=== PATIENT | female | born 1995 | race Hispanic/Latino ===

== ENCOUNTER 2016-07-04 07:54 | Emergency (ER) | payer OTHER ==
--- NOTE | 2016-07-04 12:28 | Emergency Department Report ---
HPI - General Chief Complaint: Upper Respiratory Infection Time Seen by Provider: 07/04/16 12:25 - HPI HPI: This is a 21-year-old female well-nourished well-developed in no acute distress. She presented from [facility] for complaints of nonproductive cough times one and a half weeks. She says she has nasal congestion and runny nose. She says she's been wheezing on and off. She says she took Mucinex is initially but it's not helping. Denies any fever or chills. Denies any nausea or vomiting. She reports chest congestion and pain with cough 7 out of 10. Denies any chest pain at present denies any difficulty breathing. Patient has history of mental health disorder. Denies any history of high blood pressure, heart disease or diabetes. ED Past Medical Hx - Past Medical History Previous Medical History?: Yes - Family History Family history: no significant - Social History Smoking Status: Never Smoker Substance Use Type: None - Medications Home Medications: Home Medications Medication Instructions Recorded Confirmed Last Taken Type Azithromycin [Zithromax Z-MARIAH] 250 mg PO DAILY #6 tab 07/04/16 Unknown Rx Fluticasone [Flonase] 1 spray NS QDAY #1 bottle 07/04/16 Unknown Rx ED Review of Systems ROS: Stated complaint: COUGH/WHEEZING/CHEST PAIN Other details as noted in HPI Comment: All other systems reviewed and negative Constitutional: denies: chills, fever Eyes: denies: eye discharge ENT: congestion. denies: ear pain, throat pain Respiratory: cough. denies: shortness of breath, SOB with exertion, SOB at rest , wheezing Cardiovascular: denies: chest pain, palpitations, edema, syncope Gastrointestinal: denies: abdominal pain, nausea, vomiting, diarrhea Musculoskeletal: denies: back pain Skin: denies: rash Neurological: denies: headache, abnormal gait, vertigo Physical Exam - Physical Exam Vital Signs: Vital Signs 07/04/16 09:27 Temperature 98.6 F Pulse Rate 85 Respiratory 18 Rate Blood Pressure 118/80 O2 Sat by Pulse 98 Oximetry General: This is a 21-year-old female well-nourished well-developed in no acute distress. Physical Exam: Head: Normocephalic atraumatic Mouth: Moist, no pharyngeal exudate or erythema. Uvula is midline and oral airway is patent. No gingival enlargement or dental tenderness. No facial swelling. No peritonsillar abscesses. Neck: Supple, no C-spine tenderness, no tracheal deviation. Nontender to palpate. no adenopathy Ears: Bilateral TMs congested without erythema .bilateral EAC without any redness swelling or drainage Eyes: Bilateral pupils equal and reactive to light, bilateral EOM intact. Bilateral sclera and conjunctiva without injection. Normal accommodation Nose: Mucosa moist, positive congestion with erythema. Positive clear drainage. maxillary and frontal sinus non-tender to palpate. Lungs: Clear to auscultate bilaterally no rhonchi wheezes or rales. Normal work of breathing extremity; No CCE. +2 pulses. No neurovascular compromise Cardiovascular: S1-S2, regular rate rhythm. No murmurs. Skin: clean Dry and intact no rash no lesions Psych: Normal mood and behavior ED Course Vital Signs 07/04/16 09:27 Temperature 98.6 F Pulse Rate 85 Respiratory 18 Rate Blood Pressure 118/80 O2 Sat by Pulse 98 Oximetry - Reevaluation(s) Reevaluation #1: 07/04/16 13:15 Patient received a total similar gram by mouth in emergency room. ED Medical Decision Making - Medical Decision Making ED course: This is a 21-year-old female well-nourished well-developed in no acute distress. I discussed with her based on my physical findings she has acute sinusitis. Discussed with her her diagnosis and treatment plan and she is in agreement. She received Deltasone 60 mg by mouth in emergency room. She says she's taking Claritin I discussed with her that she should continue. I also discussed with her that she should follow up with her primary care physician which she does have one. Patient discharged home with prescription for Flonase and amoxicillin. Critical care attestation.: If time is entered above; I have spent that time in minutes in the direct care of this critically ill patient, excluding procedure time. ED Disposition Clinical Impression: Cough Acute sinusitis Qualifiers: Sinusitis location: unspecified location Recurrence: not specified as recurrent Qualified Code(s): J01.90 - Acute sinusitis, unspecified Disposition: DISCHARGED TO HOME OR SELFCARE Is pt being admited?: No Does the pt Need Aspirin: No Condition: Stable Instructions: Sinusitis (ED), Acute Cough (ED) Additional Instructions: He can continue to take Claritin. Take Antibiotic as prescribed. You can flush and nostrils out with saline nasal wash. Prescriptions: Azithromycin [Zithromax Z-MARIAH] 250 mg PO DAILY #6 tab Fluticasone [Flonase] 1 spray NS QDAY #1 bottle Referrals: MARYLU NUÑEZ MD [Primary Care Provider] - 2-3 Days Forms: Work/School Release Form(ED)
[2016-07-04] MEDS ORDERED: DELTASONE PO ONE (12:37)
[2016-07-04 13:38] VITALS: BP 114/72
== END 2016-07-04 13:37 | disposition home or self-care (01) ==
LOC: EDBD → ED 07:54
DX: J01.90 Acute sinusitis, unspecified (principal)
CPT/HCPCS: 99282; J7512

== ENCOUNTER 2016-07-10 15:14 | Emergency (ER) | payer OTHER ==
--- NOTE | 2016-07-10 19:21 | XRay Report ---
FINAL REPORT EXAM: XR CHEST ROUTINE 2V HISTORY: cough assoc CP TECHNIQUE: PA and lateral views of the chest PRIORS: None. FINDINGS: Lines, tubes, and devices: N/A Lungs and pleura: Trachea is normal in position. Lungs are clear of infiltrate, pleural effusion, vascular congestion, or pneumothorax. Cardiomediastinal silhouette: Cardiac and mediastinal silhouettes are unremarkable. Other: Bony structures are intact. IMPRESSION: No acute cardiopulmonary process seen.
[2016-07-10] MEDS ORDERED: DUONEB 0.5 MG-3 MG/3 ML SOLN IH ONE (20:12)
--- NOTE | 2016-07-10 20:15 | Emergency Department Report ---
HPI - General Chief Complaint: Upper Respiratory Infection Time Seen by Provider: 07/10/16 18:13 - HPI HPI: 21-year-old female presents today with cough and cold symptoms 2 weeks. Patient states that she was seen here July 04 and was prescribed Zithromax and Flonase. Patient finished her antibiotic course and reports no symptomatic relief. Patient was also taking Mucinex, albuterol inhaler, ibuprofen at the time with minimal relief. Positive for wheezing and shortness of breath and chest pressure with coughing. Positive for sick contacts at [facility]. Denies fever, chills, chest pain, abdominal pain. Positive for history of asthma. Also complaining of a migraine headache. Positive for history of migraine headaches, patient is not on any abortive therapy. Denies head injury or loss of consciousness. States this feels like her normal migraine headache. ED Past Medical Hx - Past Medical History Previous Medical History?: Yes Hx Seizures: Yes Hx Psychiatric Treatment: Yes (Alcoholism, PTSD) Hx Asthma: Yes - Surgical History Past Surgical History?: No - Social History Smoking Status: Current Every Day Smoker Substance Use Type: Alcohol, Prescribed - Medications Home Medications: Home Medications Medication Instructions Recorded Confirmed Last Taken Type Azithromycin [Zithromax Z-MARIAH] 250 mg PO DAILY #6 tab 07/04/16 Unknown Rx Fluticasone [Flonase] 1 spray NS QDAY #1 bottle 07/04/16 Unknown Rx ALBUTEROL Inhaler [ProAir HFA 2 puff IH QID PRN #1 inhalation 07/10/16 Unknown Rx Inhaler] Promethazine /Codeine 5 ml PO Q6H PRN #100 ml 07/10/16 Unknown Rx [Phenergan/Codeine 6.25-10 mg/5 ml] Pseudoephedrine [Sudafed] 30 mg PO Q4H #20 tablet 07/10/16 Unknown Rx ED Review of Systems ROS: Stated complaint: COUGH/CHEST PAIN/SOB,WHEEZING Other details as noted in HPI Constitutional: denies: chills, fever, malaise Eyes: denies: eye pain ENT: throat pain, congestion. denies: ear pain Respiratory: cough, shortness of breath, wheezing Cardiovascular: denies: chest pain, palpitations Endocrine: no symptoms reported Gastrointestinal: denies: abdominal pain, nausea, vomiting Skin: denies: rash Neurological: headache. denies: weakness Physical Exam - Physical Exam Vital Signs: Vital Signs 07/10/16 07/10/16 15:25 19:30 Temperature 99.2 F Pulse Rate 101 H 86 Respiratory 20 20 Rate Blood Pressure 139/97 Blood Pressure 144/95 [Left] O2 Sat by Pulse 100 98 Oximetry Physical Exam: GENERAL: The patient is well-developed and well-nourished. Patient is in NAD. HEAD: Normocephalic. Atraumatic. EYES: Extraocular motions are intact, PERRL. EARS: External auditory canals and tympanic membranes clear; hearing grossly intact. NOSE: Normal nasal mucosa with minimal nasal discharge. No tenderness to palpation over frontal or maxillary sinuses. THROAT: No erythema, swelling or exudates. NECK: Supple, nontender, without lymphadenopathy. CHEST/LUNGS: Clear to auscultation throughout. No wheezing noted. HEART/CARDIOVASCULAR: Regular rate and rhythm. ABDOMEN: Abdomen is soft, nontender. Bowel sounds normoactive. No guarding or rebound tenderness. EXTREMITIES: Peripheral pulses intact. Capillary refill less than 2 seconds. NEURO: Alert and oriented 3, normal gait, fluid speech, EOMs intact, normal facial sensation, strength exam 5/5 upper and lower extremities, GCS equals 15 ED Course Vital Signs 07/10/16 07/10/16 15:25 19:30 Temperature 99.2 F Pulse Rate 101 H 86 Respiratory 20 20 Rate Blood Pressure 139/97 Blood Pressure 144/95 [Left] O2 Sat by Pulse 100 98 Oximetry - Reevaluation(s) Reevaluation #1: 07/10/16 20:33 At this time of reevaluation patient seems to be concerned about having a seizure due to her symptoms. Patient is currently on Topamax for seizures. Explained to patient that since she is already on prophylactic therapy there is not much to be done in the emergency department. Patient will be provided with a referral for neurologist to follow up with. Denies recent seizure-like activity. ED Medical Decision Making - Lab Data Vital Signs 07/10/16 07/10/16 15:25 19:30 Temperature 99.2 F Pulse Rate 101 H 86 Respiratory 20 20 Rate Blood Pressure 139/97 Blood Pressure 144/95 [Left] O2 Sat by Pulse 100 98 Oximetry - Medical Decision Making 21-year-old female presents today with persistent cough and cold symptoms. Her chest x-ray reveals no acute cardiopulmonary process. Patient has completed a course of azithromycin. She was given DuoNeb today. Her physical exam is unremarkable. Patient will be provided with a referral for neurologist to follow up with. Patient is in no acute distress at this time. She will be discharged home and is encouraged to follow up with a primary care provider. She will be sent home on Sudafed, promethazine/codeine and albuterol inhaler and is encouraged to return to the emergency room for any worsening symptoms. Critical care attestation.: If time is entered above; I have spent that time in minutes in the direct care of this critically ill patient, excluding procedure time. ED Disposition Clinical Impression: URI (upper respiratory infection) Qualifiers: URI type: unspecified URI Qualified Code(s): J06.9 - Acute upper respiratory infection, unspecified Disposition: DISCHARGED TO HOME OR SELFCARE Is pt being admited?: No Does the pt Need Aspirin: No Condition: Stable Instructions: Upper Respiratory Infection (ED) Additional Instructions: Follow-up with primary care provider. Return to the emergency department if symptoms worsen. Prescriptions: ALBUTEROL Inhaler [ProAir HFA Inhaler] 2 puff IH QID PRN #1 inhalation PRN Reason: Shortness Of Breath Promethazine /Codeine [Phenergan/Codeine 6.25-10 mg/5 ml] 5 ml PO Q6H PRN #100 ml PRN Reason: cough Pseudoephedrine [Sudafed] 30 mg PO Q4H #20 tablet Referrals: PRIMARY MD CASTRO [Primary Care Provider] - 3-5 Days JA CALHOUN MD [Staff Physician] - 3-5 Days [facility] [Outside] - 3-5 Days Forms: Work/School Release Form(ED) Time of Disposition: 20:37
[2016-07-10] MEDS ORDERED: TORADOL IM ONE (20:55)
[2016-07-10] MEDS ORDERED: BENADRYL PO ONE (20:55)
[2016-07-10 21:03] VITALS: BP 138/90
== END 2016-07-10 21:03 | disposition home or self-care (01) ==
LOC: ED 15:14
DX: J06.9 Acute upper respiratory infection, unspecified (principal); R56.9 Unspecified convulsions; J45.909 Unspecified asthma, uncomplicated; F43.10 Post-traumatic stress disorder, unspecified; F17.200 Nicotine dependence, unspecified, uncomplicated
CPT/HCPCS: 71020; 94640; 96372; 99283; J1885